=== PATIENT | male | born 2000 | race Caucasian/White ===

== ENCOUNTER 2022-03-11 12:45 | Inpatient (IN) ==
[2022-03-11 15:14] LABS: Urine Benzodiazepine Screen None Detected (None Detect); Urine Cannabinoids Screen Presumptive Positive (None Detect); Urine Opiates Screen None Detected (None Detect)
[2022-03-11] MEDS ORDERED: Al Hydrox/Mg Hydrox/Simet LIQ 30 ML UDC PO PRN (19:24)
[2022-03-12] MEDS: Vitamin THERAPEUTIC TAB PO SCH (09:14)
[2022-03-13] MEDS: Vitamin THERAPEUTIC TAB PO SCH (09:14)
[2022-03-14] MEDS: Vitamin THERAPEUTIC TAB PO SCH (10:15)
[2022-03-15 09:37] VITALS: BP 141/74
[2022-03-15] MEDS: Vitamin THERAPEUTIC TAB PO SCH (10:24)
== END 2022-03-15 16:45 | disposition home or self-care (01) | DRG 755 ==
LOC: ED 12:45 → BSU 18:43
PROVIDERS: ADMIT Psychiatry & Neurology Psychiatry; ATTEND Psychiatry & Neurology Psychiatry